=== PATIENT | female | born 1970 | race Two or more races ===

== ENCOUNTER 2020-03-19 07:57 | Emergency (ER) | payer OTHER ==
[~2020-03-19] VITALS: Ht 167.6 cm; Wt 63.5 kg
[2020-03-19] MEDS ORDERED: ACETAMINOPHEN 325 MG TAB PO ONE (10:45)
[2020-03-19] MEDS ORDERED: METHOCARBAMOL 500 MG TAB PO ONE (10:45)
[2020-03-19 11:26] VITALS: BP 136/74
== END 2020-03-19 13:21 | disposition home or self-care (01) ==
LOC: EDBD 07:57 → ER 07:57
DX: S92.351A Displaced fracture of fifth metatarsal bone, right foot, initial encounter for closed fracture (principal); M25.531 Pain in right wrist; M25.572 Pain in left ankle and joints of left foot; R07.82 Intercostal pain; V89.2XXA Person injured in unspecified motor-vehicle accident, traffic, initial encounter; Y93.I9 Activity, other involving external motion; Y92.410 Unspecified street and highway as the place of occurrence of the external cause; Y99.8 Other external cause status
CPT/HCPCS: 29515; 71046; 73110; 73610; 73630; 93005